=== PATIENT | male | born 1945 | race Caucasian/White ===

== ENCOUNTER 2023-01-02 16:19 | Emergency (ER) | payer MEDICARE, BC, SELFPAY ==
[2023-01-02 16:39] VITALS: BP 153/72; PULSE 61; RESP 18; TEMP 36.6; O2SAT 99; BMI 24.2
--- NOTE | 2023-01-02 19:37 | ED.FALL ---
HPI - Fall General Chief Complaint: Fall Stated Complaint: Fall Time Seen by Provider: 01/02/23 18:41 Source: patient Mode of arrival: Ambulatory History of Present Illness HPI Narrative: 77-year-old gentleman with a history of hypertension, hyperlipidemia osteoarthritis who currently is visiting from [place] stumbled and fell bruising his right cheek. He is not having any other complaints of pain, was able to walk out the remainder of his hike. Reports no headache, visual changes, malocclusion, neck pain, musculoskeletal abnormalities, chest pain, palpitations, fever, abdominal pain, nausea or vomiting. Review of Systems Review of Systems Narrative: Pertinent positive and negative findings as per HPI Patient History Medical History Hyperlipidemia Hypertension Social History Smoking Status: Never smoker Smoking Status: Never smoker alcohol intake frequency: holidays/special occasions only Substance Use Type: does not use Exam Initial Vital Signs Initial Vital Signs: Vital Signs Temperature 97.9 F 01/02/23 16:39 Pulse Rate 61 01/02/23 16:39 Respiratory Rate 18 01/02/23 16:39 Blood Pressure 153/72 H 01/02/23 16:39 Pulse Oximetry 99 01/02/23 16:39 Oxygen Delivery Method Room Air 01/02/23 16:39 General: Healthy appearing, in no acute distress. Able to give a complete and coherent history. Well-nourished well-developed HEENT: Moist mucous membranes, normal sclera with reactive pupils, contusion with ecchymosis over the right cheek without abrasion, tenderness over the underlying bony structures. Extraocular eye movement is unimpeded and nonpainful. Vision is at his baseline. Neck: No tenderness to midline palpation or with full range of motion, supple Respiratory: Lungs are clear to auscultation, no wheezing no rales no rhonchi. Full and symmetrical air movement Cardiac: Regular rate and rhythm no murmurs no bruits Abdomen: Soft, nontender, good bowel tones, no flank pain Skin: Warm and dry, no rashes Neurologic: Grossly neurologically intact with no obvious asymmetries or abnormalities Extremities: No trauma, well perfused Psych: Cooperative, appropriate insight and affect Course Vital Signs Vital signs: Vital Signs - 8 hr 01/02/23 16:39 Temperature 97.9 F Pulse Rate 61 Respiratory Rate 18 Blood Pressure 153/72 H Pulse Oximetry 99 Oxygen Delivery Method Room Air MDM - Fall MDM Narrative Medical decision making narrative: CC: Mechanical fall while hiking, acute injury uncertain prognosis Complicating co-morbidities: Hypertension, hyperlipidemia Data collected from: patient, Social determinants of health that may influence the patients condition: Patient is currently visiting his daughter and his primary residence is in [place] Differential considered: Intracranial hemorrhage, orthopedic injury to neck, upper lower extremities Exam documented above, pertinent findings include: Swollen and ecchymosis over the right malar eminence with no impeded motion for the eye, no periorbital tenderness, no dental malalignment, no TMJ tenderness. No nasal abnormalities. No other injuries or appreciated Imaging studies independently reviewed: With shared decision-making, based on isolated bruising to the right cheek only and otherwise benign exam we opted to not do any facial CT scans. Again, based on clinical exam and shared decision-making we opted to not do brain CT or cervical spine scans Discussion: 77-year-old gentleman with mechanical fall contusion without abrasion to the right cheek with no other injury no evidence of facial fractures nasal fractures periorbital fractures. No evidence of globe injury cervical spine injury. He did not lose consciousness he is not complaining of headache or nausea. No other trauma appreciated. He describes his pain is minimal and seems to be more associated with the swelling rather than anything else. We reviewed the use of ice, ibuprofen, Tylenol and reasons to return to the emergency department. He is safe for discharge home Discharge Plan Departure Patient Disposition: Home Clinical Impression: Contusion of face Qualifiers: Encounter type: initial encounter Qualified Code(s): S00.83XA - Contusion of other part of head, initial encounter Instructions: DI for Contusion Activity Restrictions/Additional Instructions: Thank you for coming in today I am sorry your [employer] hike was interrupted. On clinical exam, you certainly have some bruising over your right cheek however there is no indication of underlying broken bones, jaw injury, eye injury or injury to any of the bones around the eye. You are not having any significant headaches or signs of severe concussion or bleeding inside your brain and you are not complaining of any neck pain. We discussed doing CT scanning to see if there were any facial fractures and together decided that that was not necessary. If symptoms get worse, change or you have new or changing symptoms we can always have you return and proceed with imaging at that time. Using 400 mg of ibuprofen (2 [id number] pills) and 1 Tylenol every 6 hours can be very helpful in controlling pain. Ice to the area can certainly help with the swelling. I suspect that you are going to notice ulcerative aches and pains in various places around your body over the next 24 hours. If you find that you are getting worse or develop any new symptoms, please feel free to return to the emergency department for further evaluation. Stand Alone Forms: Patient Portal/API
== END 2023-01-02 20:00 | disposition home or self-care (01) ==
PROVIDERS: Emergency Provider Emergency Medicine
DX: S00.83XA Contusion of other part of head, initial encounter (principal); W18.30XA Fall on same level, unspecified, initial encounter
CPT/HCPCS: 99281; 99283